=== PATIENT | female | born 1980 | race Hispanic/Latino ===

== ENCOUNTER 2019-03-30 06:44 | Emergency (ER) | payer SELFPAY | END 2019-03-30 08:02 | LOC: ERS 06:44 | DX: Z02.89 Encounter for other administrative examinations (principal); F41.9 Anxiety disorder, unspecified; F32.9 Major depressive disorder, single episode, unspecified; F17.210 Nicotine dependence, cigarettes, uncomplicated | CPT/HCPCS: 99283 ==